=== PATIENT | male | born 1945 | race Caucasian/White ===

== ENCOUNTER 2024-01-25 05:30 | Inpatient (IN) | payer MEDICARE, BC ==
[~2024-01-25] VITALS: Ht 175.3 cm; Wt 61.2 kg
[2024-01-25 06:48] LABS: BASOPHILS % (AUTO) 0.4 % (0.0-2.0); EOSINOPHILS % (AUTO) 0.4 % (0.0-7.0); HEMATOCRIT 36.9 % (36.7-47.1); HEMOGLOBIN 12.6 g/dL (12.5-16.3); LYMPHOCYTES # (AUTO) 1.1 K/uL (0.8-4.8); LYMPHOCYTES % (AUTO) 12.9 % (20.5-51.5); MEAN CORPUSCULAR HEMOGLOBIN 32.3 uug (23.8-33.4); MEAN CORPUSCULAR HGB CONC 34 g/dL (32.5-36.3); MEAN CORPUSCULAR VOLUME 94.5 fL (73.0-96.2); MONOCYTES # (AUTO) 0.8 K/uL (0.1-1.30); MONOCYTES % (AUTO) 9.5 % (0.0-11.0); NEUTROPHILS # (AUTO) 6.8 K/uL (1.8-8.9); NEUTROPHILS % (AUTO) 76.8 % (38.5-71.5); PLATELET COUNT (AUTO) 162 K/uL (152-348); RED BLOOD CELL COUNT(AUTO) 3.91 MIL/uL (4.06-5.63); RED CELL DISTRIBUTION WIDTH 12.9 % (12.1-16.2); WHITE BLOOD COUNT (AUTO) 8.8 K/uL (3.6-10.2)
[2024-01-25 07:14] LABS: ALANINE AMINOTRANSFERASE 35 U/L (16-63); ALBUMIN 3.5 g/dL (3.4-5.0); ALKALINE PHOSPHATASE 71 U/L (50-136); ASPARTATE AMINOTRANSFERASE 52 U/L (15-37); BILIRUBIN,TOTAL 0.7 mg/dL (0.2-1.0); CALCIUM 8.8 mg/dL (8.5-10.1); CARBON DIOXIDE 33 mmol/L (21-32); CHLORIDE 105 mmol/L (98-107); CREATININE 0.7 mg/dL (0.6-1.3); GLUCOSE 87 mg/dL (74-106); NT-PRO BNP 649 pg/mL (0-125); POTASSIUM 3.7 mmol/L (3.5-5.1); SODIUM SERUM 143 mmol/L (136-145); TOTAL PROTEIN, SERUM 6.5 g/dL (6.4-8.2); UREA NITROGEN, BLOOD 17 mg/dL (7-18)
[2024-01-25 10:19] LABS: *BILIRUBIN,URIN NEGATIVE (NEGATIVE); *BLOOD, URINE 1+ (NEGATIVE); *CLARITY,URINE SLIGHTLY CLOUDY (CLEAR); *COLOR,URINE YELLOW (YELLOW); *KETONES,URINE NEGATIVE (NEGATIVE); *PROTEIN,URINE NEGATIVE (NEGATIVE); *UROBILINOGEN,URINE 0.2 E.U./dl (NORMAL); LEUKOCYTE ESTERASE ,URINE NEGATIVE (NEGATIVE); NITRITE, URINE NEGATIVE (NEGATIVE); UGLUCOSE NEGATIVE (NEGATIVE)
[2024-01-25] MEDS ORDERED: LACT-47 PO (10:19)
[2024-01-25] MEDS ORDERED: LORA0.5T48 PO (10:19)
[2024-01-25] MEDS ORDERED: QUET25TA PO ×2 (10:19→14:15)
[2024-01-25] MEDS ORDERED: QUET50TA PO (10:19)
[2024-01-25] MEDS ORDERED: MELA5TAB20 PO (10:19)
[2024-01-25 10:22] LABS: BACTERIA,URINE FEW /HPF (NONE SEEN); RBC,URINE 20-50 /HPF (0-3); WBC,URINE 0-3 /HPF (0-3)
[2024-01-25] MEDS: IV NORMAL SALINE 1000 ML BAG IV ONE (10:43)
[2024-01-25] MEDS ORDERED: MORPHINE SULFATE 2 MG/1 ML DISP.SYRIN IVP PRN (10:45)
[2024-01-25] MEDS ORDERED: ONDANSETRON 4 MG/2 ML VIAL IV PRN (10:45)
[2024-01-25 11:07] LABS: *AMPHETAMINE, URINE NEGATIVE (NEGATIVE); *BARBITURATE, URINE NEGATIVE (NEGATIVE); *BENZODIAZEPINE, URINE NEGATIVE (NEGATIVE); *CANNABINOID, URINE NEGATIVE (NEGATIVE); *COCCAINE, URINE NEGATIVE (NEGATIVE); *OPIATE, URINE NEGATIVE (NEGATIVE); *PHENCYCLIDINE SCREEN,URINE NEGATIVE (NEGATIVE); FENTANYL, URINE NEGATIVE (NEGATIVE)
[2024-01-25] MEDS: IV NS 1000 ML 1,000 ML IV SCH (11:15)
[2024-01-25 12:21] VITALS: BP 163/82; TEMP 98.4; O2SAT 96
[2024-01-25] MEDS: IV NS 1000 ML 1,000 ML IV PRN (12:28)
[2024-01-25 12:36] VITALS: BP 144/74; TEMP 98.4; O2SAT 96
[2024-01-25] MEDS ORDERED: GUAI5SYR PO (14:13)
[2024-01-25] MEDS ORDERED: LORA-259 PO (14:14)
[2024-01-25] MEDS ORDERED: POLY15DR27 EACHEYE (14:17)
[2024-01-25] MEDS: ACETAMINOPHEN 325 MG TABLET PO PRN (15:12)
[2024-01-25] MEDS: QUETIAPINE FUMARATE 25 MG TABLET PO SCH ×2 (15:12→20:56)
[2024-01-25 15:14] VITALS: BP 171/81; TEMP 98.5; O2SAT 94
[2024-01-25] MEDS: hydrALAZINE HCL 20 MG/1 ML VIAL IV PRN (15:16)
[2024-01-25] MEDS: DOCUSATE SODIUM 100 MG CAPSULE PO SCH (17:30)
[2024-01-25] MEDS ORDERED: QUETIAPINE FUMARATE 25 MG TABLET PO SCH (18:00)
[2024-01-25 20:00] VITALS: BP 114/66; TEMP 97.9; O2SAT 95
[2024-01-25] MEDS: HEPARIN SODIUM,PORCINE 5,000 UNITS/ML VIAL SQ SCH (20:58)
[2024-01-26] VITALS: BP 144/85; TEMP 97.7; O2SAT 97
[2024-01-26 04:30] VITALS: BP 150/81; TEMP 97.8; O2SAT 95
[2024-01-26 06:45] LABS: BASOPHILS % (AUTO) 0.6 % (0.0-2.0); EOSINOPHILS # (AUTO) 0.2 K/uL (0.0-0.7); EOSINOPHILS % (AUTO) 3.4 % (0.0-7.0); HEMATOCRIT 36.3 % (36.7-47.1); HEMOGLOBIN 12.5 g/dL (12.5-16.3); LYMPHOCYTES # (AUTO) 1.2 K/uL (0.8-4.8); LYMPHOCYTES % (AUTO) 22.1 % (20.5-51.5); MEAN CORPUSCULAR HEMOGLOBIN 32.6 uug (23.8-33.4); MEAN CORPUSCULAR HGB CONC 34 g/dL (32.5-36.3); MEAN CORPUSCULAR VOLUME 94.6 fL (73.0-96.2); MONOCYTES # (AUTO) 0.5 K/uL (0.1-1.30); MONOCYTES % (AUTO) 8.6 % (0.0-11.0); NEUTROPHILS # (AUTO) 3.7 K/uL (1.8-8.9); NEUTROPHILS % (AUTO) 65.3 % (38.5-71.5); PLATELET COUNT (AUTO) 182 K/uL (152-348); RED BLOOD CELL COUNT(AUTO) 3.84 MIL/uL (4.06-5.63); RED CELL DISTRIBUTION WIDTH 13.1 % (12.1-16.2); WHITE BLOOD COUNT (AUTO) 5.7 K/uL (3.6-10.2)
[2024-01-26 07:01] LABS: ALANINE AMINOTRANSFERASE 37 U/L (16-63); ALBUMIN 3.3 g/dL (3.4-5.0); ALKALINE PHOSPHATASE 74 U/L (50-136); ASPARTATE AMINOTRANSFERASE 48 U/L (15-37); BILIRUBIN,TOTAL 0.8 mg/dL (0.2-1.0); CALCIUM 8.6 mg/dL (8.5-10.1); CARBON DIOXIDE 33 mmol/L (21-32); CHLORIDE 107 mmol/L (98-107); CREATININE 0.6 mg/dL (0.6-1.3); GLUCOSE 88 mg/dL (74-106); PHOSPHOROUS 3.3 mg/dL (2.5-4.9); POTASSIUM 3.8 mmol/L (3.5-5.1); SODIUM SERUM 142 mmol/L (136-145); TOTAL PROTEIN, SERUM 6.4 g/dL (6.4-8.2); UREA NITROGEN, BLOOD 10 mg/dL (7-18)
[2024-01-26 07:02] LABS: DIFFERENTIAL COMMENT 1
[2024-01-26 07:14] VITALS: BP 162/85; TEMP 97.5; O2SAT 100
[2024-01-26] MEDS ORDERED: Medication Not On Formulary EA (Quetiapine Fumarate (Seroquel) 50 MG) PO SCH (09:00)
[2024-01-26 11:50] VITALS: BP 98/54; TEMP 98.2; O2SAT 96
[2024-01-26 16:23] VITALS: BP 114/68; TEMP 97.9; O2SAT 96
[2024-01-26 19:00] VITALS: BP 118/69; TEMP 98.1; O2SAT 97
[2024-01-27 08:00] VITALS: BP 148/87; TEMP 98.4; O2SAT 97
[2024-01-27 11:27] VITALS: BP 136/71; TEMP 98.3; O2SAT 96
[2024-01-27 15:16] VITALS: BP 109/67; TEMP 97.6; O2SAT 96
[2024-01-27 20:17] VITALS: BP 138/74; TEMP 97.2; O2SAT 94
[2024-01-28 04:23] VITALS: BP 160/83; TEMP 97.2; O2SAT 96
[2024-01-28 04:28] VITALS: TEMP 97.2
== END 2024-01-28 10:00 | DRG 641 ==
LOC: ER 05:37 → EDBD 05:37 → MEDSURG3 11:25 → TELE3 11:48 → MEDSURG3 01-26 08:38
PROVIDERS: ADMIT Internal Medicine; ATTEND Internal Medicine
DX: E86.0 Dehydration (principal); S00.81XA Abrasion of other part of head, initial encounter; W19.XXXA Unspecified fall, initial encounter; Y92.099 Unspecified place in other non-institutional residence as the place of occurrence of the external cause; F03.90 Unspecified dementia, unspecified severity, without behavioral disturbance, psychotic disturbance, mood disturbance, and anxiety; Z91.81 History of falling; R31.21 Asymptomatic microscopic hematuria
CPT/HCPCS: 36415; 70450; 71045; 83605; 84100; 84484; 85025; 85730; 87040; A4606; A4663; C1758; G0378; J0360; J1644; J7040